=== PATIENT | male | born 1960 | race Caucasian/White ===

== ENCOUNTER 2018-01-14 05:50 | Day surgery (SDC) | payer OTHER ==
[~2018-01-14] VITALS: Ht 182.9 cm; Wt 101.6 kg
[~2018-01-14 05:50] MED LIST: ASPI81CH PO; ATOR20 PO; Prinivil10 MG PO
== END 2018-01-14 09:58 | disposition home or self-care (01) ==
LOC: ORSCMMR 05:50 → ORD 10:00
PROVIDERS: Surgery
PROC: 0WUF0JZ Supplement Abdominal Wall with Synthetic Substitute, Open Approach (ICD-10-PCS; principal; 2018-01-14 07:30)
DX: K42.0 Umbilical hernia with obstruction, without gangrene (principal); E78.5 Hyperlipidemia, unspecified; I10 Essential (primary) hypertension; I25.10 Atherosclerotic heart disease of native coronary artery without angina pectoris; Z87.891 Personal history of nicotine dependence; Z79.82 Long term (current) use of aspirin; Z79.899 Other long term (current) drug therapy
CPT/HCPCS: C1781; J0330; J0690; J1100; J1885; J2250; J2405; J2710; J3010; J7120